=== PATIENT | male | born 1970 | race Caucasian/White ===

== ENCOUNTER 2019-05-31 14:27 | Inpatient (IN) ==
[2019-05-31] MEDS ORDERED: ASPIRIN PO ONE (14:46)
[2019-05-31] MEDS ORDERED: NITROGLYCERIN SL PRN (14:46)
--- NOTE | 2019-05-31 15:01 | Diag Imaging Result Doc PS360 ---
CHEST-1 VIEW - 05/31/2019 INDICATION: chest pain COMPARISON: 10/27/2015 FINDINGS: The lungs are normally expanded and clear. Heart size and mediastinal contours are normal. No pneumothorax or pleural effusion. IMPRESSION: Negative exam. Electronically signed by Nolan Palomo 05/31/2019 2:59 PM
[2019-05-31 15:03] LABS: BASO# 0.02 X1000 (0.0-0.2); BASO% 0.3 % (0.0-0.8); EOS# 0.02 X1000 (0.0-0.7); EOS% 0.3 % (0.0-10.0); HEMATOCRIT 16.6 % (42.0-52.0); IMM GRAN# 0.06 X1000 (0.0-0.04); IMM GRAN% 0.8 % (0.0-0.5); LYMPH# 1.42 X1000 (1.2-3.4); LYMPH% 19.9 % (20.5-51.1); MCH 29.9 PG (27-31); MCHC 31.9 g/dL (33-37); MCV 93.8 FL (81-99); MONO# 0.37 X1000 (0.11-0.59); MONO% 5.2 % (1.7-9.3); MPV 10.8 FL (7.4-10.4); NEUT# 5.23 X1000 (1.4-6.5); NEUT% 73.5 % (42.2-75.2); PLT 201 X1000 (130-400); RBC 1.77 XMIL (4.7-6.1); WBC 7.12 X1000 (4.8-10.8)
[2019-05-31 15:05] LABS: HEMOGLOBIN 5.3 g/dL (14.0-18.0)
[2019-05-31 15:11] LABS: INR 1.13; PROTIME 14.6 Seconds (11.0-16.0)
[2019-05-31 15:13] LABS: PTT 25.4 Seconds (22.3-41.8)
[2019-05-31] MEDS ORDERED: NS 500 ML IV ONE (15:16)
--- NOTE | 2019-05-31 15:16 | EKG Report ---
Test Performed on : 05/31/2019 2:37:15 PM Test Reason : chest pain Blood Pressure : / mmHG Vent. Rate : 109 BPM Atrial Rate : 109 BPM P-R Int : 152 ms QRS Dur : 084 ms QT Int : 364 ms P-R-T Axes : 059 034 201 degrees QTc Int : 490 ms Sinus tachycardia. Left ventricular hypertrophy with repolarization abnormality Abnormal ECG When compared with ECG of 27-OCT-2015 20:25, Vent. rate has increased BY [address] now depressed in Inferior leads ST now depressed in Lateral leads T wave inversion now evident in Inferior leads T wave inversion now evident in Lateral leads QT has lengthened Unconfirmed Result
[2019-05-31 15:21] LABS: AGAP 15; ALBUMIN 3.8 g/dL (3.5-5.0); ALKALINE PHOSPHATASE 52 U/L (32-122); BUN 17 mg/dL (8-22); CALCIUM 8.4 mg/dL (8.8-10.2); CHLORIDE 107 mmol/L (98-107); COSMO 293; CREATININE 0.9 mg/dL (0.7-1.2); ESTIMATED GFR > 60; GLUCOSE 177 mg/dL (70-104); GOT 32 U/L (10-34); GPT 29 U/L (10-44); POTASSIUM 3.7 mmol/L (3.5-5.1); SODIUM 144 mmol/L (136-145); TCO2 22 mmol/L (25-35); TOTAL BILIRUBIN 0.19 mg/dL (0.20-1.00); TOTAL PROTEIN 5.7 g/dL (6.3-8.3)
--- NOTE | 2019-05-31 15:43 | PROVIDER DOCUMENTATION ---
This chart was entered by Melvi Garber Scribe, acting as scribe for Hebert Villarreal MD. HPI-Chest Pain - General Chief Complaint: Chest Pain Stated Complaint: CHEST PAIN,CHF Time Seen by Provider: 05/31/19 14:42 Source: patient Allergies/Adverse Reactions: Patient Allergies Allergy/AdvReac Type Severity Reaction Status Date / Time No Known Allergies Allergy Verified 05/31/19 15:35 - History of Present Illness-CP Nature of Presenting Problem: Patient is a 48 year old male who presents with left side chest pain that radiates to bilateral shoulders. States shortness of breath with pain. Reports symptoms started yesterday. Denies nausea and vomiting. History of CHF and HTN. States taking a BC powder for pain. Location: reports: other (left side) Chest Pain Radiation: reports: shoulders (bilateral) Quality of Pain: reports: aching Severity in ED: mild Onset/Duration: 24 hours ago Timing: still present Context/Activities at Onset: reports: light activity Associated Symptoms: reports: shortness of breath. denies: diaphoresis, nausea, vomiting Similar Symptoms Previously?: Yes Recently Seen Here or By Another Healthcare Provider: No Review of Systems - Adult - REVIEW OF SYSTEMS - ADULT Constitutional: reports: no symptoms reported. denies: chills, fever, fatique Eyes: reports: no symptoms reported Ears, Nose, Mouth & Throat: reports: no symptoms reported Cardiovascular: reports: see HPI, chest pain. denies: irregular heart rate, palpitations Respiratory: reports: see HPI, shortness of breath. denies: cough, wheezing Gastrointestinal: reports: no symptoms reported Genitourinary: reports: no symptoms reported Musculoskeletal: reports: no symptoms reported Integumentary: reports: no symptoms reported Neurological: reports: no symptoms reported Psychiatric: reports: no symptoms reported Endocrine: reports: no symptoms reported Hematologic/Lymphatic: reports: no symptoms reported Allergic/Immunologic: reports: no symptoms reported All Other Systems: Reviewed and Negative Past History - Adult - PAST MEDICAL HISTORY-ADULT Review of Records: reports: Old Records Reviewed, Social history reviewed & non- contributory. Major Childhood Illnesses: reports: denies history Cardiovascular: reports: CHF, HTN Respiratory: reports: denies history Gastrointestinal: reports: denies history Obstetrical/Gynecological: reports: denies history Genitourinary: reports: denies history Musculoskeletal: reports: denies history Neurological: reports: denies history Psychiatric: reports: denies history Endocrine/Immune: reports: denies history Other Conditions: reports: denies history - PRIOR SURGERIES/PROCEDURES Surgical/Procedure History: reports: reviewed, not pertinent - IMMUNIZATION STATUS Childhood Immunizations: See Nurse Assessment Flu Vaccine: See Nurse Assessment - FAMILY HISTORY Family History: reviewed, not pertinent - SOCIAL HISTORY Smoking: cigarettes, greater than 1 pack/day Provider spent 3-5 mins advising pt. on dangers of tobacco.: Discussed manners to quit use, and f/u contacts for add'l counseling. Substance Use: alcohol Alcohol Use Frequency: occasionally Physical Exam-General - PHYSICAL EXAM-ADULT Initial Vital Signs Reviewed: Yes - CONSTITUTIONAL General Appearance: alert, no apparent distress. negative: lethargic - RESPIRATORY Respiratory: chest non-tender, lungs clear, normal breath sounds. negative: crackles, rales, stridor - CARDIOVASCULAR Cardiovascular: normal peripheral pulses, regular rate, rhythm. negative: tachycardia - GASTROINTESTINAL (ABDOMEN) Abdominal Exam: normal bowel sounds, non tender, soft. negative: guarding - GENITOURINARY Rectal Exam: other (dark tarry stool present) Hemoccult Exam: heme positive stool - SKIN Integumentary: normal turgor, warm/dry, pallor. negative: diaphoresis, jaundice - NEUROLOGIC Neurologic: grossly normal. negative: aphasia, facial droop - PSYCHIATRIC Psych/Mental Status: normal mood/affect, oriented x 3. negative: anxious - HEART Score HEART Score: History: Slightly Suspicious HEART Score: ECG: Non-Specific Repolarization Disturbance/LBBB/PM HEART Score: Age: 45-65 Years HEART Score: Risk Factors for Atherosclerotic Disease: 1 or 2 Risk Factors HEART Score: Troponin: < or = Normal Limit Total HEART Score:: 3 Progress - PLAN OF CARE/RESULTS Progress/Plan/Lab Results: Vital Signs - 8 hr 05/31/19 14:31 Temperature 97.8 F Pulse Rate 117 H Respiratory Rate 20 Blood Pressure 221/112 O2 Sat by Pulse Oximetry 99 05/31/19 15:25 Stool Occult Blood (DONNA) - Final Stool Laboratory Results - last 24 hr 05/31/19 05/31/19 05/31/19 14:45 14:45 14:45 WBC 7.12 RBC 1.77 L Hgb 5.3 L* Hct 16.6 L MCV 93.8 MCH 29.9 MCHC 31.9 L RDW Std Deviation 15.0 H Plt Count 201 MPV 10.8 H Immature Gran % (Auto) 0.8 H Neut % (Auto) 73.5 Lymph % (Auto) 19.9 L Hubbard % (Auto) 5.2 Eos % (Auto) 0.3 Baso % (Auto) 0.3 Immature Gran # (Auto) 0.06 H Neut # (Auto) 5.23 Lymph # (Auto) 1.42 Hubbard # (Auto) 0.37 Eos # (Auto) 0.02 Baso # (Auto) 0.02 Segmented Neutrophils Not Reportable PT INR PTT (Actin FS) Sodium 144 Potassium 3.7 Chloride 107 Carbon Dioxide 22 L Anion Gap 15 BUN 17 Creatinine 0.9 Estimated GFR/1.73 m2 > 60 BUN/Creatinine Ratio 19 Glucose 177 H Calculated Osmolality 293 Calcium 8.4 L Total Bilirubin 0.19 L AST 32 ALT 29 Alkaline Phosphatase 52 Troponin T Gix-Y-Omukhsgcekc Pept 666 H Total Protein 5.7 L Albumin 3.8 Globulin 1.9 Albumin/Globulin Ratio 2.0 Blood Type Blood Type Confirm Antibody Screen Crossmatch 05/31/19 05/31/19 05/31/19 14:45 14:45 14:45 WBC RBC Hgb Hct MCV MCH MCHC RDW Std Deviation Plt Count MPV Immature Gran % (Auto) Neut % (Auto) Lymph % (Auto) Hubbard % (Auto) Eos % (Auto) Baso % (Auto) Immature Gran # (Auto) Neut # (Auto) Lymph # (Auto) Hubbard # (Auto) Eos # (Auto) Baso # (Auto) Segmented Neutrophils PT 14.6 INR 1.13 PTT (Actin FS) 25.4 Sodium Potassium Chloride Carbon Dioxide Anion Gap BUN Creatinine Estimated GFR/1.73 m2 BUN/Creatinine Ratio Glucose Calculated Osmolality Calcium Total Bilirubin AST ALT Alkaline Phosphatase Troponin T 0.038 Xhr-H-Uehivbabevq Pept Total Protein Albumin Globulin Albumin/Globulin Ratio Blood Type A POSITIVE Blood Type Confirm Antibody Screen NEGATIVE Crossmatch See Detail 05/31/19 16:53 WBC RBC Hgb Hct MCV MCH MCHC RDW Std Deviation Plt Count MPV Immature Gran % (Auto) Neut % (Auto) Lymph % (Auto) Hubbard % (Auto) Eos % (Auto) Baso % (Auto) Immature Gran # (Auto) Neut # (Auto) Lymph # (Auto) Hubbard # (Auto) Eos # (Auto) Baso # (Auto) Segmented Neutrophils PT INR PTT (Actin FS) Sodium Potassium Chloride Carbon Dioxide Anion Gap BUN Creatinine Estimated GFR/1.73 m2 BUN/Creatinine Ratio Glucose Calculated Osmolality Calcium Total Bilirubin AST ALT Alkaline Phosphatase Troponin T Wuq-I-Cuylpgadnvn Pept Total Protein Albumin Globulin Albumin/Globulin Ratio Blood Type Blood Type Confirm A POSITIVE Antibody Screen Crossmatch Orders Category Date Time Status Nursing- Obtain EKG ONCE Care 05/31/19 14:45 Completed Transfuse .Give-Transfuse Care 05/31/19 15:16 Active CHEST-1 VIEW [RAD] Stat Exams 05/31/19 14:45 Completed CBC WITH ELECTRONIC DIFF [HEME] Stat Lab 05/31/19 14:45 Completed COMPREHENSIVE METABOLIC PANEL [CHEM] Stat Lab 05/31/19 14:45 Completed LRPC (RED CELLS) [BBK] Stat Lab 05/31/19 14:45 Results OCCULT BLOOD SCREENING [STOOL] Stat Lab 05/31/19 15:25 Completed PRO B-NATRIURETIC PEPTIDE Stat Lab 05/31/19 14:45 Completed PROTIME WITH INR [COAG] Stat Lab 05/31/19 14:45 Completed PTT [COAG] Stat Lab 05/31/19 14:45 Completed TROPONIN T Stat Lab 05/31/19 14:45 Completed TROPONIN T Stat Lab 05/31/19 16:53 Received TYPE & SCREEN [BBK] Stat Lab 05/31/19 14:45 Results 0.9% Sodium Chloride Inj [Ns] 500 ml Med 05/31/19 15:16 Discontinued IV As Directed mls/hr Aspirin Med 05/31/19 14:46 Discontinued 325 mg PO NOW ONE Nitroglycerin Sl [Nitroglycerin] Med 05/31/19 14:46 Active 0.4 mg SL Q5M PRN PRN EKG [EKG] Stat Ther 05/31/19 14:45 Draft EKG [EKG] Stat Ther 05/31/19 16:18 Ordered Result Diagrams: 05/31/19 14:45 05/31/19 14:45 - REASSESSMENT Reassessment #1 Time Reassessed: 15:26 Status: other (Patient's H & H was low. Patient informed Dr. Villarreal he has been having dark tarry stool for the last 3 days.) - EKG 1 Time of EKG reading by physician:: 14:37 EKG Read and Signed by:: Hebert Villarreal EKG Interpretation (*Must complete 3 of following elements*): Abnormal Rate: 109 Rhythm: sinus tachycardia [place]: normal QRS: LVH (with repolarization abnormality) NV Interval: normal Comments: abnormal ECG 2 Time of EKG reading by physician:: 16:47 EKG Read and Signed by:: Hebert Villarreal EKG Interpretation (*Must complete 3 of following elements*): Abnormal Rate: 101 Rhythm: sinus tachycardia [place]: normal QRS: LVH (with repolarization abnormality.) NV Interval: normal Comments: abnormal ECG - XRAY 1 XRAY Study: Chest Impression: See EMR Report ( CHEST-1 VIEW - 05/31/2019 INDICATION: chest pain COMPARISON: 10/27/2015 FINDINGS: The lungs are normally expanded and clear. Heart size and mediastinal contours are normal. No pneumothorax or pleural effusion. IMPRESSION: Negative exam. Electronically signed by Nolan Palomo 05/31/2019 2:59 PM 05/31/19 1459 Interpreting Physician: Nolan Palomo MD Dictated Date/Time: 05/31/19 1459 cc: Hebert Villarreal MD; None,PCP) - CONSULTS/PCP/HOSPITALIST Notification #1 *Consult/PCP/Hospitalist*: Renee SECRET SERVICE AGENT for Hospitalist. Time Discussed: 15:43 Reason/Comments: admit Consult Disposition: Will see in ED, Admit Departure - Departure Date of Disposition Decision: 05/31/19 Time of Disposition Decision: 15:41 DIAGNOSIS: GI bleed, Chest pain, CHF (congestive heart failure), Severe anemia Disposition: ADMITTED INPATIENT 09 Certified Medical Emergency: Emergent Condition: Fair Referrals and Follow-Ups: None,PCP [Primary Care Provider] - - Critical Care Note This patient required my direct & personal management of CC.: No Attestation - Physician/ COURTNEY Attestation Patient care was provided by Advanced Practice Provider:: No The physician spent face to face time with patient:: Yes Advanced Practice Provider documentation review:: Supervising physician onsite and consulted in the evaluation and care of this patient. The physician did have a face to face encounter with the patient. This chart was documented by the rivera rashidibe, (Melvi Garber Scribe) and accurately reflects the services I performed and decisions made by me, Hebert Villarreal MD, as attested by the provider's signature.
--- NOTE | 2019-05-31 17:50 | EKG Report ---
Test Performed on : 05/31/2019 4:47:04 PM Test Reason : chest pain 2 hr repeat Blood Pressure : / mmHG Vent. Rate : 101 BPM Atrial Rate : 101 BPM P-R Int : 150 ms QRS Dur : 082 ms QT Int : 376 ms P-R-T Axes : 048 029 162 degrees QTc Int : 487 ms Sinus tachycardia. Left ventricular hypertrophy with repolarization abnormality Abnormal ECG When compared with ECG of 31-MAY-2019 14:37, (Unconfirmed) Nonspecific T wave abnormality has replaced inverted T waves in Inferior leads Unconfirmed Result
[2019-05-31] MEDS ORDERED: PROTONIX IV ONE (18:04)
[2019-05-31] MEDS ORDERED: SODIUM CHLORIDE 0.9% INJ ONE (18:04)
[2019-05-31] MEDS ORDERED: ATIVAN IV PRN (18:05)
[2019-05-31] MEDS ORDERED: SODIUM CHLORIDE 0.9% INJ SCH (18:15)
[2019-05-31] MEDS: NS 1,000 ML IV SCH (19:45)
[2019-05-31] MEDS: LABETALOL IV PRN (20:08)
[2019-05-31] MEDS ORDERED: NICODERM PATCH TD PRN (20:41)
[2019-05-31] MEDS ORDERED: OFIRMEV 1000 MG/ISOTONIC SOLN 1,000 MG/100 ML BOTTLE IV ONE (20:47)
--- NOTE | 2019-05-31 23:06 | HISTORY AND PHYSICAL ---
PRIMARY CARE PHYSICIAN: None. PRESENTING COMPLAINT: Chest pain, shortness of breath, easily tired for the past 4 days. HISTORY OF PRESENTING COMPLAINT: Mr. Solares is a 48-year-old gentleman who is known to have hypertension, some congestive heart failure. He was supposed to be following up with Dr. Mohan, but has not done so for the past 4 years. He came to the emergency department because he has been having some chest pain for the past 4 days. He said it is mainly exertion related and it does radiate to the left arm. He said it is retrosternal, but it last less than maybe a minute or 2. He said most time he would have to stop because it is associated with shortness of breath. Whenever he takes some rest he feels slightly better and then he will start working again. Mr. Solares said he has been told at his workplace that he has been getting pale for the past 3 days, but he is just not taking any notice of it himself. Mr. Solares also refers that for the past 3 or 4 days, he has been having some black tarry stool. Today, he went to his workplace and he was told by his coworkers that he looks extremely pale and that he needed to come and check it out. He said he has been also extremely fatigued and has barely energy to move around. Upon presenting to the emergency department, he was found to have a blood pressure of 221/112, his pulse was 117. Rest of other vitals were normal. His lab work revealed that his hemoglobin was 5.3. We have been consulted for symptomatic anemia, and also chest pain to rule out cardiac pathology. PAST MEDICAL HISTORY: 1. Hypertension. 2. Congestive heart failure. 3. The patient has a history of peptic ulcer disease. A couple of years ago he was told not to use any ddbm-eaa-opxbhrv pain medications, but he has been bingeing on Stanback for all the joint pains and his chest pain lately, he has been using more than 6 packs of these Stanback pain medications. PAST SURGICAL HISTORY: He had a cervical spine surgery. CURRENT MEDICATIONS: Patient is not on any medications for the past 4 years. ALLERGIES: Unknown. FAMILY HISTORY: Positive for Father who had heart attacks, the patient is not sure at what age. Mother has congestive heart failure. SOCIAL HISTORY: Patient currently lives with 3 kids. He is not , but he has a significant other. He is smoker, he has more than 29-yoim-igmv history. He drinks about a 6-pack of beer very frequently. He denied using it daily, however. REVIEW OF SYSTEMS: A 14-point review of system conducted with Mr. Solares, what is positive is what is in the HPI. PHYSICAL EXAMINATION: CURRENT VITALS: Blood pressure is 192/126, pulse is 95, respiration is 18, temperature 98.2 degrees. The patient is saturating 99% on room air. GENERAL: Mr. Solares is a 48-year-old male. He is in bed, no distress. HEENT: Mucosa is pale but moist. Anicteric. Acyanotic. Head is normocephalic and atraumatic. NECK: Supple. There is no JVD. No carotid bruit. Trachea is midline. There is no thyromegaly. There is an old surgical scar over the posterior neck. RESPIRATORY SYSTEM: There is good air entry bilaterally. No crepitations. No rhonchi. No accessory muscle use. CARDIOVASCULAR: Regular rate and rhythm, slightly tachycardic but no murmurs, no rubs, no gallops. [place] beat seems to be in the 6th intercostal space midclavicular line. GASTROINTESTINAL: Abdomen is soft, minimally tender in the epigastrium, but no rebound or guarding. No hepatosplenomegaly. EXTREMITIES: No pedal edema. Distal pulses are present. Inguinal region is unremarkable. GENITOURINARY: Not examined. CENTRAL NERVOUS SYSTEM: Patient is awake, alert, oriented x4. Motor is 5/5. Sensation is intact. Cranial nerves 2-12 have been grossly examined and they are unremarkable. PSYCHIATRIC: The patient has very good understanding. He is very cooperative. LABORATORY DATA: WBC 7.12, hemoglobin is 5.3, platelet count of 201,000. Chemistry is also reviewed, it is completely unremarkable. ProBNP is 666. Troponin's so far have been unremarkable. A chest x-ray this morning shows negative. An EKG shows normal sinus rhythm, is tachycardic. There is T-wave inversions in the lateral leads. There is a voltage criteria for left ventricular hypertrophy. ASSESSMENT: Mr. Solares, who has been bingeing on nonsteroidal anti-inflammatories, comes in with a 3-day history of tarry black stool, symptomatic anemia with confirmed hemoglobin of 5.3. He has also been having some chest discomfort. 1. Symptomatic anemia with hemoglobin of 5.3. Patient is being group and crossmatched, will be given 2 units of packed red blood cells and we will repeat the hemoglobin and hematocrit. 2. Suspected gastrointestinal bleed. The patient gives history of melenic stool. We think this is the cause of his symptomatic anemia. The patient has been bingeing on alrd-apx-alpwtmy nonsteroidal anti-inflammatories, and he has a history of peptic ulcer disease, so it is very possible this is a bleeding ulcer. We are going to put him on IV b.i.d. proton pump inhibitor, avoid any NSAIDs, and consult Gastroenterology. 3. Chest pain. The patient seems to have significant cardiac history in the past. I think his chest pain could as well be cardiac. I think once his hemoglobin and hematocrit is stabilized and he is hemodynamically stable, he will need a cardiac evaluation. At that time, we will consult Cardiology. 4. Severe uncontrolled hypertension. We will use IV labetalol for blood pressure control for now. Once patient has finished with his gastrointestinal procedures and we can utilize the enteral route, we will start him on p.o. medications. 5. Tobacco use and abuse. Patient has been counseled. 6. Alcohol use and abuse. Patient has been counseled. We are going to be looking out for withdrawal symptoms. We will put the patient on p.r.n. Ativan, if needed. 7. History of congestive heart failure. ProBNP is 666. We are going to do echocardiogram when the heart rate is better controlled. So, in general, we are going to admit Mr. Solares in PVC under telemetry monitoring. We will keep in NPO, start him on b.i.d. Protonix, labetalol for blood pressure control, gentle hydration, and consult GI for now. We think that Mr. Solares will also be needing Cardiology evaluation when he is hemodynamically stable. cc: Srinivas Bailey MD
[2019-06-01] MEDS ORDERED: TYLENOL PR PRN (03:00)
[2019-06-01] MEDS: NS 1,000 ML IV SCH ×2 (05:57→05:59)
[2019-06-01 06:25] LABS: INR 1.15; PROTIME 14.9 Seconds (11.0-16.0)
[2019-06-01 06:37] LABS: AGAP 9; ALB/GLOB RATIO 1.5; ALBUMIN 3.3 g/dL (3.5-5.0); ALKALINE PHOSPHATASE 48 U/L (32-122); BASO# 0.03 X1000 (0.0-0.2); BASO% 0.5 % (0.0-0.8); BUN 15 mg/dL (8-22); CHLORIDE 111 mmol/L (98-107); CHOLESTEROL 139 mg/dL (0-200); COSMO 288; CREATININE 0.8 mg/dL (0.7-1.2); EOS# 0.14 X1000 (0.0-0.7); EOS% 2.4 % (0.0-10.0); ESTIMATED GFR > 60; GLUCOSE 98 mg/dL (70-104); GOT 56 U/L (10-34); GPT 50 U/L (10-44); HDL 33 mg/dL (35-55); HEMATOCRIT 20.3 % (42.0-52.0); HEMOGLOBIN 6.5 g/dL (14.0-18.0); IMM GRAN# 0.03 X1000 (0.0-0.04); IMM GRAN% 0.5 % (0.0-0.5); LDL 78 mg/dL; LYMPH# 1.75 X1000 (1.2-3.4); LYMPH% 29.9 % (20.5-51.1); MAGNESIUM 2.3 mg/dL (1.5-2.7); MCV 90.6 FL (81-99); MONO# 0.47 X1000 (0.11-0.59); MPV 11.2 FL (7.4-10.4); NEUT# 3.43 X1000 (1.4-6.5); NEUT% 58.7 % (42.2-75.2); PLT 167 X1000 (130-400); POTASSIUM 3.9 mmol/L (3.5-5.1); RBC 2.24 XMIL (4.7-6.1); RDW 16.2 % (11.5-14.5); SODIUM 144 mmol/L (136-145); TCO2 24 mmol/L (25-35); TOTAL BILIRUBIN 0.39 mg/dL (0.20-1.00); TOTAL PROTEIN 5.5 g/dL (6.3-8.3); TRIGLYCERIDES 142 mg/dL (39-160); VLDL 28 mg/dL; WBC 5.85 X1000 (4.8-10.8)
[2019-06-01] MEDS ORDERED: NS 500 ML IV ONE (07:31)
[2019-06-01] MEDS: M.V.I.-12 10 ML, FOLIC ACID 1 MG, MAGNESIUM SULFATE 1 GM, THIAMINE 100 MG in NS 1,000 ML IV SCH ×2 (07:57→12:54)
[2019-06-01] MEDS: PROTONIX IV SCH ×4 (07:58→22:05)
[2019-06-01] MEDS: LABETALOL IV PRN ×2 (09:02→13:12)
--- NOTE | 2019-06-01 12:39 | PROGRESS NOTE ---
DATE: 06/01/2019 SUBJECTIVE: This morning Mr. Solares refers to be doing okay. Has not had any bowel movement but he feels slightly stronger. Mr. Solares denies any chest pain at this point. OBJECTIVE: Vital Signs: Blood pressure was 138/88, pulse of 67, respirations 16, temperature 98.1 degrees. General: Mr. Solares is a 48-year-old gentleman. He is in bed, no distress. HEENT: Mucosa is moist but slightly pale. Anicteric, acyanotic. Neck: Is supple. Patient has multiple tattoos all over his skin. Respiratory: There is good air entry bilaterally. No crepitations. No rhonchi. Cardiovascular: Regular rate and rhythm. No murmurs, no rubs, no gallops. GI: Abdomen was soft, nontender. Bowel sounds present. Extremities: No pedal edema. FAMILY LIFE COUNSELOR: Patient is awake, alert, oriented. There is no focal neurological deficit. LABORATORY DATA: Hemoglobin is up to 6.5 after 2 PRBC transfusions. Chemistry is unremarkable. AST and ALT are minimally elevated. Troponins have been creeping up steadily, but within normal range. This is a repeat EKG pending for today as well as an echocardiogram. ASSESSMENT: 1. Symptomatic anemia with hemoglobin of 5.3 on presentation. Patient is status post 2 PRBC transfusions. H and H is now up to 6.5. We are going to give him 2 more PRBCs. The patient is pending GI evaluation. 2. Suspected GI bleed. The patient did complain of melenic stools. He has been bingeing on nonsteroidal anti-inflammatory medications. The patient also has a history of a peptic ulcer disease. 3. Severe uncontrolled hypertension. We will continue with labetalol. We will restart the patient on oral regimen after the GI procedure. 4. Tobacco and alcohol use and abuse. Patient has been counseled. 5. History of congestive heart failure in the past. The patient is currently euvolemic. Echocardiogram is pending. 6. Chest pain. The EKGs yesterday only did show a left heart strain pattern. Cardiac biomarkers are within normal range, but they have been trending up. We are going to repeat the EKG this morning. We will follow up with an echo after the GI procedure. Will evaluate the cardiac report. cc: Srinivas Bailey MD
[2019-06-01] MEDS ORDERED: COREG PO SCH (14:30)
[2019-06-01] MEDS: NORVASC PO SCH ×3 (14:37→22:06)
[2019-06-01] MEDS: PRINIVIL PO SCH ×3 (14:37→22:06)
--- NOTE | 2019-06-01 14:52 | EKG Report ---
Test Performed on : 06/01/2019 11:45:55 AM Test Reason : chest pain Blood Pressure : / mmHG Vent. Rate : 073 BPM Atrial Rate : 073 BPM P-R Int : 142 ms QRS Dur : 096 ms QT Int : 428 ms P-R-T Axes : 039 016 120 degrees QTc Int : 471 ms Normal sinus rhythm. Left ventricular hypertrophy with repolarization abnormality Abnormal ECG When compared with ECG of 31-MAY-2019 16:47, (Unconfirmed) No significant change was found Confirmed by Good ROSARIO, Pedro Steele ([id number]) on 06/02/2019 8:29:37 AM
--- NOTE | 2019-06-01 15:44 | ECHO REPORT ---
ORDER DATE: 06/01/2019 INTERPRETING PHYSICIAN: Kayden Miller MD. CLINICAL INDICATIONS: CHF, chest pain. M-MODE MEASUREMENTS: Left ventricle end diastole: 5.7 cm. Left ventricle end systole: 4.2 cm. Posterior wall: 1.3 cm. Interventricular septum: 1.3 cm. Left atrium: 4.9 cm. Aortic diameter: 3.9 cm. SUMMARY OF 2-DIMENSIONAL IMAGIN. There is mild degree of concentric LVH. The left ventricular systolic function appears to be mildly decreased, ejection fraction roughly about 50% with hypokinesis of the inferior wall and the inferior interventricular septum. That would be consistent with coronary heart disease. 2. The chamber is not dilated. Optison was injected to optimize visualization of endocardium. 3. The right ventricle appears to be at the upper limits of normal. 4. Inferior vena cava is dilated. 5. The tricuspid valve shows mild degree of regurgitation. 6. The pulmonary pressure is estimated at 57 mmHg indicating moderate pulmonary hypertension. 7. Pulmonic valve is unremarkable. 8. The mitral valve shows mild degree of regurgitation. 9. The pulse wave Doppler of mitral inflow shows a pseudonormal pattern with a tall E wave and a short A wave with a short deceleration time. 10.The tissue Doppler of septal and lateral mitral annulus averages 6 cm. There is impaired left ventricular relaxation. 11.There is diastolic dysfunction. 12.The pulmonary venous flow is normal. 13.E/E prime ratio is elevated. 14.There is no evidence of masses or thrombus. No pericardial effusion. SUMMARY: This study shows: 1. Mild degree of concentric LVH with mildly decreased systolic function, ejection fraction around 50% with hypokinesis of the inferior wall. 2. Moderately enlarged left atrium. 3. Moderate pulmonary hypertension estimated at 57 mmHg. 4. Diastolic dysfunction with elevated left atrial pressure. The study is consistent with decompensated congestive heart failure mostly diastolic. cc: MD Srinivas Cervantes MD
[2019-06-01] MEDS ORDERED: LASIX IV ONE (18:15)
[2019-06-01] MEDS ORDERED: NICODERM PATCH TD PRN (18:17)
[2019-06-01] MEDS: COREG PO SCH ×2 (19:43→22:05)
--- NOTE | 2019-06-01 19:45 | GASTROENTEROLOGY CONSULTATION ---
DATE: 06/01/2019 REASON FOR CONSULTATION: GI bleed, melena. HISTORY OF PRESENT ILLNESS: Mr. Geoff Solares is a 48-year-old gentleman with past medical history of uncontrolled hypertension, chronic migraines and CHF, who presents with 2 days of left substernal chest pain radiating to his arms and dyspnea on exertion. The patient says that he has noticed over the last several days black stools a couple times a day, without any bright red blood per rectum. No hematemesis, nausea, vomiting, abdominal pain or diarrhea. He does report some constipation. He has been on Stanback which is powdered aspirin at least 2-3 times per day for years. He also takes copious amounts of ibuprofen and naproxen as well. He says that about 3-4 years ago he was diagnosed with peptic ulcer disease, but has never had an EGD or colonoscopy in the past. He is not on PPI. He is noncompliant with his blood pressure medications. He attributes his headaches to his uncontrolled blood pressure. REVIEW OF SYSTEMS: As per HPI, otherwise 12-point review of systems is negative. PAST MEDICAL HISTORY: As per HPI. PAST SURGICAL HISTORY: Cervical neck surgery, left knee arthroscopy. FAMILY HISTORY: No family history of GI malignancies. SOCIAL HISTORY: A 2-1/1-wsfi-qum-day smoker. He drinks 6-10 beers per day. He uses recreational hydrocodone and marijuana. ALLERGIES: No known drug allergies. MEDICATIONS: The patient has not been on any medications for the last 4 years other than his NSAIDs and aspirin use. PHYSICAL EXAMINATION: Vital Signs: Temperature 97.8 degrees, heart rate of 99, respiratory rate 13, blood pressure 204/22 [*], O2 saturation 94% on room air. General: The patient is awake, alert and oriented, in no acute distress. HEENT: Sclerae anicteric. Moist mucous membranes. Extraocular motor intact. Neck: Supple. No JVD or lymphadenopathy. Cardiac: Regular rate and rhythm. No murmurs, rubs or gallops. Lungs: Clear to auscultation bilaterally. No wheezing. Abdomen: Soft, nontender, nondistended. Normoactive bowel sounds. No rebound or guarding. Extremities: No clubbing, cyanosis or edema. Neurologic: Nonfocal. LABORATORY DATA: White count of 5.8, hemoglobin of 6.5, from 5.3 on admission. His last hemoglobin in our system was in 2016, which was 14.7. Platelets of 167,000. INR 1.15. Sodium 144, potassium 3.9, chloride of 111, bicarbonate 24, BUN of 15, creatinine of 0.8. Hemoglobin A1c 5.0, calcium 8.0. LFTs: Total bilirubin 0.39, AST of 56, ALT of 50, alkaline phosphatase of 48. Troponin T is 0.071. Albumin 3.3, total protein 5.5. TSH is 0.85. DIAGNOSTIC DATA: EKG shows sinus tachycardia with LVH and repolarization abnormality; nonspecific T-wave abnormality has replaced inverted T waves in inferior leads. Chest x-ray is negative. ASSESSMENT AND PLAN: Mr. Geoff Solares is a 48-year-old gentleman with past medical history of uncontrolled blood pressure, tobacco abuse, congestive heart failure and alcoholism, who presents with 2 days of substernal chest pain in the setting of hypertensive emergency and profound anemia. His MCV is normal. BUN and creatinine ratio is normal. Renal function is normal. He is hypertensive with mild tachycardia. He has been transfused 3 units of packed red blood cells since admission. He is on a proton pump inhibitor intravenously b.i.d.; nitroglycerin; labetalol intravenously; Ativan; nicotine patch. For his anemia and melena, I suspect that he has peptic ulcer disease in the setting of chronic nonsteroidal anti-inflammatory drug and aspirin use. His anemia is likely acute on chronic, given his longstanding use of nonsteroidal anti-inflammatory drugs and his hemodynamic status. I am concerned about giving the patient anesthesia in the setting of hypertensive urgency/emergency. We would like his blood pressure better controlled before considering an esophagogastroduodenoscopy at this time. He also has a history of alcoholism. I would want to monitor for alcohol withdrawal. He is on Ativan as needed for that. I would also recommend thiamine and folate in case he develops refeeding syndrome. We will put him on clear liquids for now and trend his hemoglobin and hematocrit daily, holding any blood thinners or nonsteroidal anti- inflammatory drugs. Thank you for this consult. We will follow with you. Please call with any questions or concerns.
[2019-06-02 01:23] LABS: AGAP 12; BUN 10 mg/dL (8-22); CALCIUM 8.4 mg/dL (8.8-10.2); CHLORIDE 106 mmol/L (98-107); COSMO 282; CREATININE 0.9 mg/dL (0.7-1.2); ESTIMATED GFR > 60; GLUCOSE 138 mg/dL (70-104); POTASSIUM 2.9 mmol/L (3.5-5.1); SODIUM 141 mmol/L (136-145); TCO2 23 mmol/L (25-35)
[2019-06-02] MEDS: POTASSIUM CHLORIDE 20 MEQ/SWI 20 MEQ/100 ML IVPB IV SCH ×2 (01:51→05:03)
[2019-06-02 06:30] LABS: BASO# 0.03 X1000 (0.0-0.2); BASO% 0.3 % (0.0-0.8); EOS# 0.23 X1000 (0.0-0.7); EOS% 2.2 % (0.0-10.0); HEMATOCRIT 28.4 % (42.0-52.0); HEMOGLOBIN 9.4 g/dL (14.0-18.0); IMM GRAN# 0.03 X1000 (0.0-0.04); IMM GRAN% 0.3 % (0.0-0.5); LYMPH% 15.1 % (20.5-51.1); MCH 29.6 PG (27-31); MCHC 33.1 g/dL (33-37); MCV 89.3 FL (81-99); MONO# 0.65 X1000 (0.11-0.59); MONO% 6.1 % (1.7-9.3); MPV 11.5 FL (7.4-10.4); NEUT# 8.07 X1000 (1.4-6.5); PLT 223 X1000 (130-400); RBC 3.18 XMIL (4.7-6.1); WBC 10.61 X1000 (4.8-10.8)
[2019-06-02 06:48] LABS: AGAP 13; ALB/GLOB RATIO 1.9; ALBUMIN 3.7 g/dL (3.5-5.0); ALKALINE PHOSPHATASE 66 U/L (32-122); BUN 9 mg/dL (8-22); CALCIUM 8.6 mg/dL (8.8-10.2); CHLORIDE 108 mmol/L (98-107); COSMO 286; CREATININE 0.7 mg/dL (0.7-1.2); ESTIMATED GFR > 60; GLUCOSE 105 mg/dL (70-104); GOT 48 U/L (10-34); GPT 61 U/L (10-44); PHOSPHORUS 3.2 mg/dL (2.7-4.5); POTASSIUM 3.4 mmol/L (3.5-5.1); SODIUM 144 mmol/L (136-145); TCO2 23 mmol/L (25-35); TOTAL BILIRUBIN 0.58 mg/dL (0.20-1.00); TOTAL PROTEIN 5.6 g/dL (6.3-8.3)
--- NOTE | 2019-06-02 07:19 | EKG Report ---
Test Performed on : 06/02/2019 06:23:01 AM Test Reason : non ST LA Blood Pressure : / mmHG Vent. Rate : 084 BPM Atrial Rate : 084 BPM P-R Int : 146 ms QRS Dur : 098 ms QT Int : 410 ms P-R-T Axes : 057 024 051 degrees QTc Int : 484 ms Normal sinus rhythm. Left ventricular hypertrophy with repolarization abnormality Prolonged QT Abnormal ECG When compared with ECG of 01-JUN-2019 11:45, (Unconfirmed) T wave inversion no longer evident in Lateral leads Confirmed by Good ROSARIO, Pedro Steele ([id number]) on 06/02/2019 8:33:58 AM
[2019-06-02] MEDS: M.V.I.-12 10 ML, FOLIC ACID 1 MG, MAGNESIUM SULFATE 1 GM, THIAMINE 100 MG in NS 1,000 ML IV SCH (08:08)
[2019-06-02] MEDS ORDERED: KLOR-CON PO ONE (08:41)
[2019-06-02] MEDS: NORVASC PO SCH ×2 (08:51→20:15)
[2019-06-02] MEDS: PRINIVIL PO SCH (08:51)
[2019-06-02] MEDS: ISORDIL PO SCH ×3 (08:51→17:11)
[2019-06-02] MEDS: APRESOLINE PO SCH ×3 (08:51→17:11)
[2019-06-02] MEDS: COREG PO SCH ×2 (08:51→20:15)
[2019-06-02] MEDS: PROTONIX IV SCH (08:51)
[2019-06-02] MEDS ORDERED: DIPRIVAN 1% ONE (09:46)
--- NOTE | 2019-06-02 09:55 | CARDIOLOGY CONSULTATION ---
DATE: 06/02/2019 CONSULTATION REQUESTED BY: The hospitalist. REASON FOR CONSULTATION: Patient with chest pain, abnormal echocardiogram. HISTORY: Mr. Solares is a 48-year-old, male who presented to the emergency room for admission on May 31. At that time, he reported that for 2 or 3 days, he has been experiencing recurrent substernal chest pains. They appeared to be worsened by effort. He has never experienced pain of that nature before. Upon initial encounter, they did a hemoglobin level that was very low at 5.3 g. His troponin levels at that time were 0.041 and subsequently checked at 0.038 and 0.039, 0.041, and the last one 0.103 ng/ml which is abnormal. Initial electrocardiogram shows sinus rhythm with diffuse ST abnormality suggesting a strain pattern. Echocardiogram was done on June 01 and that showed a decreased ejection fraction at 50% with hypokinesis of the inferior wall, moderately enlarged left atrium, moderate pulmonary hypertension, and evidence of diastolic dysfunction. The patient was complaining also of significant dyspnea. Initial chest x-ray done in the ER was negative. Pro BNP was elevated at 666 pg/mL. The patient has been given 4 units of packed red blood cells and Lasix. I am seeing him on June 02 in the morning and he is feeling much better. Subsequent EKG done today at 6:23 in the morning shows sinus rhythm with a less abnormal ST-segment. He is resting comfortably. He has no more pains. PAST HISTORY: Positive for "diagnostic of congestive heart failure" given to him by Dr. Mohan with [facility]. Apparently, he followed the patient for some time, treated him for hypertension. However, the patient was noncompliant and quit seeing him. Patient has somatic pains and has been taking excessive amounts of over the counter Aspirin/Salicylate preparation, about 6 packs a day (StanBack powder 845 mg of ASA per pack). SURGICAL HISTORY: Positive for cervical spine surgery. He has a scar on the back of his neck. He has had arthroscopic knee surgery. FAMILY HISTORY: Mother has of congestive heart failure. SOCIAL HISTORY: Patient lives with eladio. He has 3 grownup children, ages 25, 21, and 16. 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 He has been there for 1 year. The patient smokes 2-1/2 packs of cigarettes a day. He also drinks some beers, anywhere from 5 to 10 beers a day. He does not take any prescription medicine. He does not have any family doctor that he sees on a regular basis. ALLERGIES: His allergies are negative. REVIEW OF SYSTEMS: Other than the aforementioned symptoms, nothing significant. PHYSICAL EXAMINATION: Blood pressure is 153/100, temperature 98.1 degrees, pulse 73, respirations 16. He is awake, alert, in no distress. He is not significantly pale. HEENT: Unremarkable. Chest: Sounds clear to auscultation and percussion. Heart sounds are regular and rhythmic. I do not hear a gallop or murmur. Abdomen is obese, nontender. No masses. No hepatomegaly. Extremities show good pulses. No peripheral edema. Neurologic: Nonfocal. Moves 4 extremities. LABORATORY DATA: Blood work today, hemoglobin is up to 9.4 g percent, hematocrit is up to 28.4%. Sodium 144, potassium 3.4, BUN 9, creatinine 0.7. Cholesterol level, LDL is 78, HDL is 33, total cholesterol 139. IMPRESSION: 1. Patient who presented with chest pain and elevated troponin levels, borderline elevation of proBNP level, and also abnormal echocardiogram suggesting coronary heart disease. 2. Patient with severe anemia, probably secondary to chronic gastrointestinal bleeding. 3. History of hypertension. 4. Medically noncompliant. 5. Salicylate overuse. RECOMMENDATIONS: At this time, the patient is going to undergo endoscopy for evaluation of bleeding ulcers. I agree with that. We are going to optimize the management of his hypertension with amlodipine, beta blockers, isosorbide dinitrate, and also VALERIE inhibitors. The patient, unfortunately, is noncompliant and has several bad habits. That has to be dealt with at some point. I would suggest to arrange for outpatient stress testing once his bleeding, GI condition is taken care of. At this time, we are going to try to optimize his electrolytes, replace potassium, and follow him in the hospital closely. cc: Kayden Miller MD [facility]
--- NOTE | 2019-06-02 10:15 | ENDOSCOPY OPERATIVE NOTE ---
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 PROCEDURE PERFORMED: EGD, diagnostic MEDICATIONS: Per Anesthesia TOPICAL ANESTHETIC: none CONSENT: The patient understands the risks and benefits of the procedure and understands that these r isks include, but are not limited to: sedation, allergic reaction, infection, perforation and/or bleeding. Alternative means of evaluation and treatment include, among others: physical exam, x-rays, and/or surgical intervention. The patient elects to proceed with this endoscopic procedure. HISORY AND PHYSICAL: 06/02/2019 function. Hand hygiene and appropriate measures for infection prevention was taken. After the risks, benefits and alternatives of the procedure were thoroughly explained, Informed consent was verified, confirmed and timeout was successfully executed by the treatment team. The patient was anesthetized with topical anesthesia and the PR35-m56 ([id number]) endoscope was introduced through the mouth and advanced to the second portion of the duoden um. Retroflexion was performed in the stomach and revealed no abnormalities. The gastroscope was then slowly withdraw n and removed. ESOPHAGUS: The mucosa of the esophagus appeared normal. The z-line was noted at 41cm from the incis ors. The z-line appeared normal. STOMACH: A single non-bleeding and clean-based, cratered ulcer measuring 7mm in size was found on the anterior wall of the gastric antrum. Two erosions were found in the gastric antrum. Mild gastritis (inflammation) was found in the gastric antrum. DUODENUM: The duodenum was normal. SPECIMENS REMOVED: No ADVERSE EVENTS: There were no complications. POSTOPERATIVE DIAGNOSIS: 1. The mucosa of the esophagus appeared normal 2. The z-line was noted at 41cm from the incisors 3. Single ulcer measuring 7mm in size was found on the anterior wall of the gastric antrum 4. Two erosions were found in the gastric antrum 5. Gastritis (inflammation) was found in the gastric antrum 6. The duodenum was normal 7. 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 Follow-up in GI clinic in 4-6 weeks. Please call with questions REPEAT EXAM: Margarito Dunlap MD eSigned: Margarito Dunlap MD 06/02/2019 10:14 AM cc: PATIENT NAME: Geoff Solares MR#: [id number]
[2019-06-02] MEDS: HYGROTON PO SCH (10:49)
[2019-06-02] MEDS: FERROUS SULFATE PO SCH ×2 (10:49→20:15)
--- NOTE | 2019-06-02 13:32 | PROGRESS NOTE ---
DATE: 06/02/2019 SUBJECTIVE: Today, Mr. Solares refers to be doing okay. He underwent EGD early on this morning. He denies any more black stools. He said he had one yesterday which was brown. No chest pain and no shortness of breath. OBJECTIVELY: Vital signs: His current vitals are blood pressure 153/100, pulse of 79, respirations 16, temperature 98.1 degrees. General: Mr. Solares is a 48-year-old gentleman. He is in bed, no distress. HEENT: Mucosa is pink and moist. Anicteric. Acyanotic. Neck: Supple. Chest: Good air entry bilateral. No crepitations, no rhonchi. Cardiovascular: Regular rate and rhythm. No murmurs, no rubs, no gallops. GI: Abdomen is soft, minimally distended, but nontender. Bowel sounds present. Extremities: No pedal edema. Distal pulses are present. 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 There is no focal neurological deficit. LABORATORY DATA: Hemoglobin is 9.4 after 4 PRBC transfusion. Potassium is 3.4. The rest of chemistry is completely unremarkable. AST and ALT are minimally elevated. Troponin has gone up to 0.103. ASSESSMENT: 1. Symptomatic anemia with a presenting hemoglobin of 5.3. The patient is status post 4 PRBC transfusion. Hemoglobin and hematocrit are a lot better today. 2. Gastrointestinal bleed. The patient is status post EGD. Please refer to the findings in the chart. 3. Gastric ulcer with associated gastritis. The patient will be on PPI and will follow up with Dr. Dunlap at a later date for possible repeat endoscopy. 4. Severe uncontrolled hypertension. We will continue titrating his medications. 5. Tobacco and alcohol use and abuse. The patient has been counseled. 6. History of congestive heart failure. 7. Chest pain, most likely secondary to coronary artery disease. The patient's troponin has gone positive. It is very possible that this is a demand ischemia on the background of an already ischemic heart. Echocardiogram seems to suggest that the patient has coronary artery disease. Cardiology is onboard. There is a plan to follow him up on outpatient basis. 8. Transaminitis. Presumably alcohol induced. We will also do hepatitis panel to rule that out. 9. Hypokalemia. We will continue to replace. cc: Srinivas Bailey MD
[2019-06-02] MEDS: TYLENOL PO PRN (17:39)
[2019-06-02] MEDS: PROTONIX PO SCH (20:15)
[2019-06-02] MEDS: ALTACE PO SCH (20:15)
[2019-06-03 06:09] LABS: AGAP 10; ALBUMIN 3.3 g/dL (3.5-5.0); BUN 10 mg/dL (8-22); CHLORIDE 107 mmol/L (98-107); COSMO 281; CREATININE 1.1 mg/dL (0.7-1.2); ESTIMATED GFR > 60; GLUCOSE 120 mg/dL (70-104); HEMATOCRIT 25.4 % (42.0-52.0); HEMOGLOBIN 8.2 g/dL (14.0-18.0); MCH 29.6 PG (27-31); MCHC 32.3 g/dL (33-37); MCV 91.7 FL (81-99); MPV 11.8 FL (7.4-10.4); POTASSIUM 3.3 mmol/L (3.5-5.1); RBC 2.77 XMIL (4.7-6.1); RDW 14.6 % (11.5-14.5); SODIUM 141 mmol/L (136-145); TCO2 24 mmol/L (25-35); WBC 7.49 X1000 (4.8-10.8)
--- NOTE | 2019-06-03 07:22 | EKG Report ---
Test Performed on : 06/03/2019 06:46:56 AM Test Reason : non ST LA Blood Pressure : / mmHG Vent. Rate : 078 BPM Atrial Rate : 078 BPM P-R Int : 150 ms QRS Dur : 098 ms QT Int : 402 ms P-R-T Axes : 055 032 059 degrees QTc Int : 458 ms Normal sinus rhythm. with sinus arrhythmia. Left ventricular hypertrophy with repolarization abnormality Abnormal ECG When compared with ECG of 02-JUN-2019 06:23, No significant change was found Confirmed by Good ROSARIO, Pedro Steele ([id number]) on 06/03/2019 8:23:37 AM
[2019-06-03 07:41] VITALS: BP 125/67
[2019-06-03] MEDS: ALTACE PO SCH (08:13)
[2019-06-03] MEDS: PROTONIX PO SCH (08:13)
[2019-06-03] MEDS: APRESOLINE PO SCH (08:13)
[2019-06-03] MEDS: COREG PO SCH (08:14)
[2019-06-03] MEDS: HYGROTON PO SCH (08:14)
[2019-06-03] MEDS: FERROUS SULFATE PO SCH (08:14)
[2019-06-03] MEDS: NORVASC PO SCH (08:14)
[2019-06-03] MEDS: ISORDIL PO SCH (08:14)
[2019-06-03] MEDS ORDERED: THERA M PLUS PO SCH (09:00)
[2019-06-03] MEDS ORDERED: VITAMIN B-1 PO SCH (09:00)
[2019-06-03] MEDS: TYLENOL PO PRN (09:39)
--- NOTE | 2019-06-03 12:34 | CARDIOLOGY PROGRESS NOTE ---
DATE: 06/03/2019 CHIEF COMPLAINT: Abnormal echo. Weakness. Shortness of breath. SUBJECTIVE: Mr. Solares in feeling much better today. Yesterday he underwent endoscopy under Dr. Dunlap that showed evidence of gastric ulcer, according to his report. The ulcer is a 7 mm crater in the anterior wall of the gastric antrum and there were two erosions found in the gastric antrum. The duodenum was normal. He is not short of breath. He is not having chest pain. OBJECTIVE: Temperature 97.9, pulse 77, respirations 18, blood pressure 125/67. The patient is awake, alert, in no distress. HEENT unremarkable. He does not look pale. Chest is clear to auscultation and percussion. Heart sounds are regular and rhythmic. I do not hear a gallop or murmur. His abdomen is soft, nontender. Extremities showed good pulses, no edema. Neurologic exam: Follows commands. Moves all four extremities. LABORATORY DATA: Hemoglobin has dropped to 8.2 grams from yesterday of 9.4, white cell count is 7,490. Sodium 141, potassium 3.3, BUN 10, creatinine 1.1, albumin 3.3. IMPRESSION: 1. The patient who presented with a complaint of increasing dyspnea, shortness of breath. It turns out that he had congestive heart failure, mostly diastolic secondary to severe anemia, which in turn probably is secondary to chronic gastrointestinal bleeding. 2. History of hypertension. 3. Salicylate overuse. He had been taking Stanback powders (more than 4 grams of salicylate a day). 4. Medically noncompliant. 5. Suspect CAD. possible type 2 non STEMI. RECOMMENDATIONS: At this time the patient appears to be clinically stable. I will continue present medical therapy. Once the patient is optimized he can be discharged. I have instructed him to follow up with me at my office in about three to four weeks to follow up on his cardiac condition. Thank you for the opportunity to participate in his evaluation. cc: Kayden Miller MD [facility]
--- NOTE | 2019-06-04 09:20 | DISCHARGE SUMMARY ---
ADMISSION DATE: 05/31/2019 DISCHARGE DATE: 06/03/2019 DISPOSITION: Home. FOLLOW-UP: 1. Dr. Dunlap. 2. Dr. Miller. ADMISSION DIAGNOSES: 1. Symptomatic anemia with presenting hemoglobin of 5.3. Patient was transfused 4 PRBC's. Hemoglobin and hematocrit has been fairly stable. He does not have any obvious bleeding anymore at the time of the discharge. 2. I suspect a GI bleed. 3. Chest pain. 4. Severe uncontrolled hypertension. 5. Tobacco use and abuse. 6. Alcohol use and abuse. DISCHARGE DIAGNOSES: 1. Symptomatic anemia with presenting hemoglobin of 5.3. Patient was transfused. Discharge hemoglobin was 8.2 with no obvious sign of ongoing bleeding. 2. GI bleed. The patient is status post EGD. 3. Gastric ulcer with associated gastritis. Patient is currently on PPI. He will follow up with Dr. Dunlap. 4. Severe uncontrolled hypertension, noted. Blood pressures are a lot better controlled. 5. Tobacco use and abuse. 6. Alcohol use and abuse. 7. History of congestive heart failure. 8. Mildly elevated troponin on presentation during the hospital course suspicious for non STEMI on the background of possible demand ischemia from severe anemia on presentation. 9. Alcohol-induced hepatitis. 10. Hypokalemia improved. DISCHARGE MEDICATIONS: 1. Hydralazine 25 mg 3 times per day. 2. Iron sulfate 325 b.i.d. 3. Chlorthalidone 12.5 daily. 4. Isordil 20 mg 3 times per day. 5. Amlodipine 10 mg p.o. daily. 6. Pantoprazole 40 mg b.i.d. 7. Multivitamin 1 tablet daily. 8. Thiamine 100 mg p.o. daily. 9. Ramipril 10 mg b.i.d. 10. Carvedilol 12.5 b.i.d. PRESENTING COMPLAINT: Shortness of breath, easily tired, and chest pain. HISTORY OF PRESENTING COMPLAINT: Mr. Solares is a 48-year-old male who is known to have congestive heart failure and high blood pressure, but has not been taking any medications. He came into the emergency department because of getting easily tired, fatigued, and shortness of breath. Upon presentation, he also did complain of tarry black stools for the past 3 days. His presenting hemoglobin was 5.3. His presenting blood pressure was about 221/112. Mr. Solares was admitted to [facility] for medical care. HOSPITAL COURSE: Mr. Solares was initially fluid resuscitated, was group and crossmatched. She was given an initial 2 PRBC. Hemoglobin and hematocrit went up to about 6.5. She was given an additional 2 units. Hemoglobin went up to about 9.4 and stabilized around 8.2 prior to discharge. Mr. Solares did have some tarry black stools prior to admission. However, during the hospital course, he said this has cleared up, and he is having yellowish stool. He underwent EGD and per Dr. Dunlap's report it appears that he had a single ulcer at the anterior wall of the gastric antrum, and also 2 erosions were found in the gastric antrum, and some gastritis. Duodenum was normal. Patient was started on PPI, and has been advised against aspirin and NSAIDs. During the hospital course, Mr. Solares was also found to be in severe hypertension. Medications were titrated. Cardiology was consulted because of an abnormal echocardiogram. The patient was seen by Dr. Miller, who also made some changes to his current antibiotics. Dr. Miller wants a better blood pressure control, GI related problems taken care of, and then at a later date they will pursue an ischemic workup as an outpatient. This morning, Mr. Solares refers to be feeling a lot better. No obvious ongoing GI bleed. He has been advised against NSAID's and aspirin at least for now. He has also been advised on medication compliance and compliance with doctor appointment and followups. All the discharge instructions have been discussed with him. He voiced understanding. TIME SPENT FOR DISCHARGE: 37 minutes. cc: MD Margarito Jack MD Luis N. Villanueva, MD
[2019-06-04 12:45] LABS: HEPATITIS PROFILE ACUTE SEE COMMENTS
== END 2019-06-03 11:04 | disposition home or self-care (01) | DRG 281 ==
LOC: ED 14:27 → 2N 14:28
PROVIDERS: ATTEND Internal Medicine